=== PATIENT | female | born 1990 | race Caucasian/White ===

== ENCOUNTER 2020-05-04 07:20 | Inpatient (IN) | payer OTHER ==
[2020-05-04] MEDS ORDERED: morphine SULFATE/PF 0.5 MG/ML (2cc Syringe - QUVA) ONE (07:43)
[2020-05-04] MEDS ORDERED: ELECTROLYTE-148 SOLN 1,000 ML IV SCH ×2 (07:45)
[2020-05-04] MEDS ORDERED: CITRIC ACID/SODIUM CITRATE 30 ML UNIT-DOSE CUP PO ONE ×2 (07:45)
[2020-05-04] MEDS ORDERED: ONDANSETRON 4 MG/2 ML VIAL IVPUSH PRN (08:04)
--- NOTE | 2020-05-04 08:06 | HP ---
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: Alzheimer's, CVA, Dementia, Migraine, Multiple Sclerosis, Peripheral Neuropathy, Parkinson's, Seizure, Syncope, TIA, Vertigo, Other Cardiovascular: No: AFIB, Aneurysm, Aortic Insufficiency, Aortic Stenosis, CAD, CHF, Deep Vein Thrombosis, HTN, Hyperlipdemia, [place], Mitral Insufficiency, Mitral Stenosis, Murmur, Pulmonary Hypertension, Other Pulmonary: No: Asthma, Bronchitis, Cancer, COPD, O2 Dependent, Pneumonia, Previously Intubated, Pulmonary Embolus, Pulmonary Fibrosis, Sleep Apnea, Other Gastrointestinal: No: Ascites, Cancer, Constipation, Crohn's Disease, Diverticulitis, Diverticulosis, Esophageal Varices, Gastritis, GERD, GI Bleed, Hemorrhoids, Hiatal Hernia, Inflamatory Bowel Disease, Irritable Bowel Disease, Pancreatitis, Peptic Ulcer Disease, Ulcerative Colitis, Other Hepatobiliary: No: Cirrhosis, Cholelithiasis, Cholecystitis, Choledocholithiasis, Hepatitis A, Hepatitis B, Hepatitis C, Other Renal/: No: Renal Failure, Renal Inusuff, BPH, Cancer, Hematuria, Hemodialysis, Neurogenic Bladder, Renal Calculi, UTI, Other Reproductive: No: Ectopic , Endometriosis, Fibroids, PID, Polycystic Ovary Syndrome, Postmenopausal, Other ...: 2 ...Para: 1 Heme/Onc: No: Anemia, B12 Deficiency, Bleeding Disorder, Cancer, Current Chemotherapy, Current Radiation Therapy, Hemochromatosis, Hypercoaguable State, Myeloproliferative Synd, Sickle Cell Disease, Sickle Cell Trait, Thrombocytopenia, Other Infectious Disease: No: AIDS, C-Diff, Herpes Zoster, HIV, MRSA, STD's, Tuberculosis, VREF, Other Psych: No: Addictions, Anxiety, Bipolar, Depression, Panic, Psychosis, Schizophrenia, Other Musculoskeletal: No: Bursitis, Chronic low back pain, Hemiparesis, Hemiplegia, Osteoarthritis, Paraplegia, Other Rheumatology: No: Fibromyalgia, Gout, Lupus, Rheumatoid Arthritis, Sarcoidosis, Vasculitis, Other ENT: No: Allergic Rhinitis, Sinusitis, Other Endocrine: No: Bottine[place]'s Disease, Jas's Disease, Diabetes Insipidus, Diabetes Mellitus, Hyperparathyroidism, Hyperthyroidism, Hypothyroidism, Osteopenia, SIADH, Other Dermatology: No: Basal Cell, Cellulitis, Eczema, Melanoma, Psoriasis, Squamous Cell, Other - Past Surgical History Past Surgical History: Yes: Hx Myomectomy: No Hx Transabdominal Cerclage: No Additional Surgical History: Left brest lumpectomy - Alcohol/Substance Use Hx Alcohol Use: No History of Substance Use: reports: None - Social History ADL: Independent History of Recent Travel: No Home Medications - Allergies Allergies/Adverse Reactions: Allergies Allergy/AdvReac Type Severity Reaction Status Date / Time No Known Allergies Allergy Verified 05/02/20 03:46 Family Medical History Family History: Unremarkable Review of Systems - Review of Systems Constitutional: reports: No Symptoms Eyes: reports: No Symptoms HENT: reports: No Symptoms Neck: reports: No Symptoms Cardiovascular: reports: No Symptoms Respiratory: reports: No Symptoms Gastrointestinal: reports: No Symptoms Genitourinary: reports: No Symptoms Breasts: reports: No Symptoms Reported Musculoskeletal: reports: No Symptoms Integumentary: reports: No Symptoms Neurological: reports: No Symptoms Endocrine: reports: No Symptoms Hematology/Lymphatic: reports: No Symptoms Psychiatric: reports: No Symptoms Physical Exam - Maternity Constitutional: Yes: No Distress HENT: Yes: Atraumatic Neck: Yes: Supple Cardiovascular: Yes: Regular Rate and Rhythm Breast(s): Yes: Other - Abdominal Exam/OB Number of Fetuses: Single Presentation: Vertex Contractions: No Regularity: Irritability Intensity: Unaware Monitor Mode: External Heart Rate (range): 145 Category: I Accelerations: Uniform Decelerations: None - Vaginal Exam/OB Speculum Exam: No - Physical Exam Musculoskeletal: Yes: WNL Extremities: Yes: WNL Edema: Yes Edema: LLE: Trace, RLE: Trace Integumentary: Yes: WNL ...Motor Strength: WNL Psychiatric: Yes: Alert, Oriented Imaging - Results Ultrasound: Report Reviewed Assessment/Plan 30 y/o @ 39+wks, no OB complainta, prior C/S and scheduled repeat, risks and complications discussed, all questions answered. Informed consnet obtained. -Proceed accordingly
[2020-05-04] MEDS ORDERED: ceFAZolin SODIUM 1 GM VIAL ONE (08:39)
[2020-05-04] MEDS ORDERED: ceFAZolin SODIUM 1 GM VIAL IVPB ONE (08:40)
[2020-05-04] MEDS ORDERED: OXYTOCIN 10 UNITS/ML VIAL ONE (08:52)
[2020-05-04] MEDS ORDERED: oxyCODONE HCL 5 MG TABLET PO PRN (09:26)
[2020-05-04] MEDS ORDERED: OXYTOCIN 20 UNITS in 0.9% NS 20 UNIT/1,000 ML INFUS.BAG IV SCH (09:30)
--- NOTE | 2020-05-04 09:36 | OP ---
Operative Note - Note: Operative Date: 05/04/20 (55442) Pre-Operative Diagnosis: 30 y/o @ 39.0wks, prior C/S, scheduled repeat Operation: RLTCS Findings: see dictation Post-Operative Diagnosis: Same as Pre-op Surgeon: Anthony Damian Anesthesia: Spinal Estimated Blood Loss (mls): 700 Drains, Volume Out (mls): 100 (clear) Fluid Volume Replaced (mls): 1,200 Operative Report Dictated: Yes
[2020-05-04 09:39] VITALS: BMI 27.1
[2020-05-04 10:48] LABS: CORD BASE EXCESS -3.5 mmol/L (0-2); CORD HCO3 23.1 mmHg (20-29); CORD PCO2 47.9 mmHg (30-78); CORD pH 7.301 (7.14-7.44)
[2020-05-04 10:51] LABS: CORD HCO3 24.7 mmHg (20-29); CORD PCO2 61.7 mmHg (30-78); CORD pH 7.221 (7.14-7.44)
[2020-05-04 12:00] VITALS: O2SAT 100
[2020-05-04] MEDS: IBUPROFEN 800 MG/8 ML IJ IVPB PRN (18:30)
[2020-05-05] MEDS: IBUPROFEN 800 MG/8 ML IJ IVPB PRN (04:10)
--- NOTE | 2020-05-05 06:54 | PN ---
Post Progress Note - Subjective Subjective: No issues o/n. Pain controlled. Andrew just removed, voiding freely. No flatus yet. No ambulation yet. + Post Day: 1 Type of Delivery: Repeat C/S Vital Signs: Vital Signs Temperature 97.9 F 05/05/20 06:00 Pulse Rate 71 05/05/20 06:00 Respiratory Rate 18 05/05/20 06:00 Blood Pressure 109/62 05/05/20 06:00 O2 Sat by Pulse Oximetry (%) 97 05/04/20 22:00 Uterus: Yes: Fundus below umbilicus Incision: Yes: Dressing dry and intact Abdomen/GI: Yes: Abdomen soft Lochia: Yes: Rubra Extremities: Yes: Calves non-tender Perineum: Yes: Intact Assessment/Plan 30yo s/p RLTCS, POD#1 Routine PP care PO pain control Andrew out, voiding OOB, ambulate F/U AM labs D/C to home POD#2 vs POD#3 Diamond Burch MD
--- NOTE | 2020-05-05 08:01 | PROC ---
Procedure Note Procedure: Anesthesia Post op/pain Pt seen and examined S:Alert and awake comfortable O: Vital Signs Temperature 97.9 F 05/05/20 06:00 Pulse Rate 71 05/05/20 06:00 Respiratory Rate 18 05/05/20 06:00 Blood Pressure 109/62 05/05/20 06:00 O2 Sat by Pulse Oximetry (%) 97 05/04/20 22:00 A/P: s/p c section Doing well post op Continue current care David Ambrocio MD
[2020-05-05 08:30] LABS: BASO % 0.4 % (0-2.0); EOS % 0.4 % (0-4.5); HEMATOCRIT 32.5 % (32.4-45.2); HEMOGLOBIN 10.8 GM/dL (10.7-15.3); LYMPH % 15.5 % (8-40); MCH 31.3 pg (25.7-33.7); MCHC 33.4 g/dl (32.0-36.0); MEAN CELL VOLUME 93.6 fl (80-96); MONO % 7.4 % (3.8-10.2); NEUT % 76.3 % (42.8-82.8); PLATELET COUNT 214 K/MM3 (134-434); RBC 3.47 M/mm3 (3.60-5.2); RDW 13.7 % (11.6-15.6); WHITE BLOOD COUNT 11.2 K/mm3 (4.0-10.0)
[2020-05-05] MEDS ORDERED: BISACODYL 10 MG SUPP.RECT RC PRN (09:26)
--- NOTE | 2020-05-05 09:45 | OP ---
DATE OF OPERATION: 05/04/2020 PREOPERATIVE DIAGNOSES: A 30-year-old 2, para 1 at 39 weeks of gestation, prior section x1, scheduled repeat section. POSTOPERATIVE DIAGNOSES: A 30-year-old 2, para 1 at 39 weeks of gestation, prior section x1, scheduled repeat section. PROCEDURE: Low transverse repeat section. ESTIMATED BLOOD LOSS: For the procedure 700 mL. INTRAVENOUS FLUIDS: Crystalloids 300 mL. URINE OUTPUT: Clear urine 100 ml. ANESTHESIA: Spinal. COMPLICATIONS: None. FINDINGS: Lower abdominal scar consistent with prior section. Moderate amount of subcutaneous tissue. The fascia was slightly fibrotic and adherent to the underlying rectus muscles. The rectus muscles were fused to each other in the midline. No parietal peritoneal adhesions. Visceral adhesions at the point of entry and the bladder was slightly adherent to the lower uterine segment. The lower uterine segment was not effaced. in cephalic presentation. Clear amniotic fluid. Loose nuchal cord x1. Live viable female, scores 8 and 9. Uterus and bilateral tubes and ovaries consistent with normal anatomy. Small subserosal fibroid approximately 1 x 1 cm posteriorly on the fundal aspect of the uterus. Bladder dome and rectus muscle fascial interface were intact and hemostatically stable. PROCEDURE: The patient was taken to the operating room where anesthesia was found to be adequate. She was then prepped and draped in the normal sterile fashion. Urinary Andrew catheter was placed atraumatically. Appropriate timeout took place. Pfannenstiel skin incision was made with a scalpel and carried to the underlying fascia with the Bovie. The fascia was incised at the midline and the incision extended laterally with sharp dissection. The underlying rectus muscles were dissected off bluntly and sharply. Rectus muscles were in the midline bluntly into the peritoneal cavity, extended inferiorly with sharp and blunt dissection. Bladder blade was placed and findings as previously mentioned. Transverse lower uterine segment incision was made with the scalpel approximately 5 cm above the vesicouterine junction. Amniotomy revealed clear amniotic fluid. was delivered through the surgical incision with mild fundal pressure without difficulty. Loose nuchal cord was removed. Umbilical cord clamped after delay. Sample for gases and blood obtained. Infant was handed off to the waiting NICU staff. The placenta was delivered manually and intact. The uterus was exteriorized through the surgical incision and the intrauterine cavity cleared of all clots and debris. Incision was reapproximated with 1-0 Polysorb running locked suture. Excellent structural reapproximation with 1 layer of suture. One figure-of-8 stitch of the same suture in the midline was required to neutralize minimal oozing. The uterus was internalized to the pelvic cavity and gutters were cleared of all clots and debris and once again excellent hemostasis on secondary inspection. Bladder dome and rectus muscle fascial interface examined and as noted above. Fascial incision was reapproximated with 0 Polysorb running and locked suture. Excellent structural reapproximation achieved and confirmed by digital palpation by the surgeon. Subcutaneous tissues were copiously irrigated and bleeding neutralized with Bovie cautery. Subcutaneous tissues were reapproximated with 3-0 Monocryl sutures. Skin incision was reapproximated with 3-0 Monocryl subcuticular sutures. Excellent hemostasis. The patient in stable condition. Instrument counts were reported as correct x2 by the staff. GABRIELE OSBORN MD [id number] [email or web address]
[2020-05-05] MEDS: IBUPROFEN 600 MG TABLET (FP) PO PRN ×2 (11:10→20:53)
[2020-05-05] MEDS: ACETAMINOPHEN 325 MG TABLET (FP) PO PRN ×2 (11:10→20:54)
[2020-05-05] MEDS: SIMETHICONE 80 MG TAB.CHEW (FP) PO PRN (20:53)
[2020-05-06] MEDS: IBUPROFEN 600 MG TABLET (FP) PO PRN ×2 (02:17→06:23)
[2020-05-06] MEDS: ACETAMINOPHEN 325 MG TABLET (FP) PO PRN ×2 (02:17→06:24)
[2020-05-06] MEDS: SIMETHICONE 80 MG TAB.CHEW (FP) PO PRN ×2 (02:18→06:23)
--- NOTE | 2020-05-06 07:30 | DS ---
Physical Exam-ART THERAPIST Vital Signs: Vital Signs Temperature 98.7 F 05/05/20 22:00 Pulse Rate 96 H 05/05/20 22:00 Respiratory Rate 18 05/05/20 22:00 Blood Pressure 118/70 05/05/20 22:00 O2 Sat by Pulse Oximetry (%) 97 05/04/20 22:00 Constitutional: Yes: Well Nourished, No Distress, Calm Eyes: Yes: WNL, Conjunctiva Clear, EOM Intact HENT: Yes: WNL, Atraumatic, Normocephalic Neck: Yes: WNL, Supple, Trachea Midline Cardiovascular: Yes: WNL, Regular Rate and Rhythm Respiratory: Yes: WNL, Regular, CTA Bilaterally Gastrointestinal: Yes: WNL ...Rectal Exam: Yes: WNL Renal/: Yes: WNL ....Post : Yes: Uterus firm, Uterus non-tender, Slight lochia rubra Breast(s): Yes: WNL Musculoskeletal: Yes: WNL Extremities: Yes: WNL Integumentary: Yes: WNL Wound/Incision: Yes: Clean/Dry, Well Approximated, Sutures Intact Neurological: Yes: WNL, Alert, Oriented ...Motor Strength: WNL Psychiatric: Yes: WNL, Alert, Oriented Labs: CBC, BMP 05/05/20 07:52 Delivery - Delivery Section: Low Flap Transverse Type of Anesthesia: Spinal Episiotomy/Laceration: None Delivery, Single - Stages of Labor Date of Delivery: 05/04/20 Time of Delivery: 08:51 Time Placenta Delivered: 08:53 Placenta: Yes: Expressed - 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: Yes Name: Keysha Vargas Gender: Female Weight: 7 lb 10 oz Position: OA Total Hours ROM (Hrs/Mins): 3mins - 1 Minute Total Score: 8 5 Minutes Total Score: 8 - [place] Feeding Plan Initial Plan: Elected not to breastfeed exclusively throughout hospitalization Discharge Summary Problems reviewed: Yes Reason For Visit: C SECTION [facility]: no complication Plan of Treatment: follow up [facility] care 1 week Condition: Stable - Instructions Diet, Activity, Other Instructions: Please return to regular diet as tolerated, follow up within 1 week for incision check. Call MD with any questions and concerns. Referrals: Anthony Damian MD [Staff Physician] - Disposition: HOME - Home Medications Comprehensive Discharge Medication List: Ambulatory Orders Acetaminophen [Tylenol] 650 mg PO Q6H PRN #30 capsule MDD 5 05/04/20 Ibuprofen 600 mg PO Q6H PRN #30 tablet 05/04/20 Miscellaneous Medical Supply [Breast Pump, Electronic] 1 each NR ASDIR #1 unit 05/04/20 Pnv No.95/Ferrous Fum/Folic AC [ Formula] 1 each PO DAILY 05/04/20 oxyCODONE HCL [Oxycodone HCl] 5 mg PO Q6H PRN 3 Days #12 tablet MDD 5 05/04/20
[2020-05-06 12:13] VITALS: BP 117/60; PULSE 74; TEMP 98.8
--- NOTE | 2020-05-10 16:41 | PATH ---
Surgical Pathology Report Patient Name: PANKAJ LOPEZ Med. Rec. 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 Electronically Signed Whitney Nguyễn M.D. Gross Description The specimen is received fresh labeled placenta and is a 459 gram, 20.0 x 16.5 x 2.4 cm. placenta with attached membranes and umbilical cord. The attached membranes are avila, translucent with focal opacities and insert marginally. The umbilical cord measures 15 cm. in length and averages 1.3 cm. in diameter. The cord inserts eccentrically, 4 cm. to the nearest margin. No true knots or strictures are identified. Cut surface of the umbilical cord reveals 3 vessels. The surface is white blue with moderate fibrin deposition and appropriate caliber vessels. The maternal surface is red-brown with focal defects. Sectioning reveals red-brown, spongy parenchyma. No lesions are identified. Monotype Keyboard Operator sections are submitted in three cassettes as follows: 1- membrane rolls and umbilical cord; 2-3- full thickness sections of placenta. /05/09/2020 [facility]05/09/2020
== END 2020-05-06 14:20 | disposition home or self-care (01) | DRG 540 ==
LOC: JLDR 07:20 → J3W 12:30
PROVIDERS: ADMIT Student in an Organized Health Care Education/Training Program; ATTEND Student in an Organized Health Care Education/Training Program
PROC: 10D00Z1 Extraction of Products of Conception, Low, Open Approach (ICD-10-PCS; principal; 2020-05-04 08:00)
DX: O82 Encounter for cesarean delivery without indication (principal); Z3A.39 39 weeks gestation of pregnancy; O34.211 Maternal care for low transverse scar from previous cesarean delivery; O69.81X0 Labor and delivery complicated by cord around neck, without compression, not applicable or unspecified; Z37.0 Single live birth
CPT/HCPCS: 36415; 36600; 82803; 85025; 88307-TC; 94760